=== PATIENT | female | born 1965 | race Caucasian/White ===

== ENCOUNTER 2019-08-18 13:52 | Day surgery (SDC) | payer BC ==
[2019-08-18] MEDS ORDERED: Marcaine 0.5% SDV 10 ML IJ ONE (13:53)
[2019-08-18] MEDS ORDERED: Depo-Medrol 40 MG/ML IM ONE (13:53)
[2019-08-18] MEDS ORDERED: Ketamine HCl 50 MG/ML ONE (15:13)
[2019-08-18] MEDS ORDERED: DIPRIVAN 200 MG/20 ML IV ONE (15:33)
[2019-08-18] MEDS ORDERED: Lactated Ringers 1,000 ML IV ONE (15:42)
--- NOTE | 2019-08-18 16:31 | XRAY ---
Indication: Right shoulder injection. Intraoperative fluoroscopy was provided for 11 seconds. Single digital spot image submitted for interpretation demonstrates needle tip projecting over the right glenohumeral joint. Small amount of contrast injected for needle tip placement. Correlate with intraoperative findings/report.
--- NOTE | 2019-08-18 16:31 | XRAY ---
Indication: Left shoulder injection. Intraoperative fluoroscopy was provided for 14 seconds. Single digital spot image submitted for interpretation demonstrates needle tip projecting over the left glenohumeral joint superiorly. Small amount of contrast injected for needle tip placement. Correlate with intraoperative findings/report.
--- NOTE | 2019-08-18 16:34 | XRAY ---
11 seconds fluoroscopy time in surgery for right knee injection.
--- NOTE | 2019-08-18 16:34 | XRAY ---
14 seconds fluoroscopy time in surgery for left knee injection.
== END 2019-08-18 15:51 | disposition home or self-care (01) ==
LOC: SDC-PAIN 13:52
PROVIDERS: ATTEND Psychiatry & Neurology Pain Medicine
DX: M19.012 Primary osteoarthritis, left shoulder (principal); M19.011 Primary osteoarthritis, right shoulder; E78.5 Hyperlipidemia, unspecified; K44.9 Diaphragmatic hernia without obstruction or gangrene; K21.9 Gastro-esophageal reflux disease without esophagitis; F41.8 Other specified anxiety disorders; F40.240 Claustrophobia
CPT/HCPCS: 20550; 20610; 73030; 77002; J1030; J2704; Q9966

== ENCOUNTER 2021-11-04 18:53 | Emergency (ER) | payer BC ==
[2021-11-04 19:20] VITALS: O2SAT 98
[2021-11-04 20:27] VITALS: PULSE 59
--- NOTE | 2021-11-04 21:28 | ERPHSYRPT ---
- History of Present Illness Time Seen by Provider: 11/04/21 18:58 Source: patient Exam Limitations: no limitations Patient Subjective Stated Complaint: Patient is c/o right leg pain. States it started in her foot last week so she made and appointment with Dr. Bush and h as that appointment on 11/06/21. Patient states that the pain has become worse and is now radiating into her calf at times. Denies any falls or injuries to the affected leg. States pain is better when standing/applying pressure to area but is worse when she is laying down or off of her feet for an extended amount of time. Triage Nursing Assessment: Patient ambulated back to ED without difficulties. She is alert and oriented and answering questions appropriately. Pedal pulses present in both feet. Slight swelling noted to right calf and knee area. Skin tone normal, no increased redness or warmth noted. CMS checks to toes on both feet WNL but patient does state that she thinks she can feel more in her left foot than her right foot. Negative Homans sign. Physician History: 56-year-old healthy female presented in the ER with chief complaint of right lower extremity pain. Patient reports having right foot and ankle pain for the last couple of weeks off-and-on with activity and since yesterday started to have some pain radiating to right lower leg and calf, moderate intensity, dull sharp nature, more with palpation and activity and partial relief with resting. No redness, fever chills, fall, long travel or history of DVT. Does not hormone/ control pills. Allergies/Adverse Reactions: Iodinated Contrast Media Allergy (Severe, Verified 11/04/21 19:20) Difficulty Breathing Home Medications: No Reportable Medications [No Reported Medications] 11/04/21 [History] Hx Tetanus, Diphtheria Vaccination/Date Given: Yes Hx Influenza Vaccination/Date Given: Yes Hx Pneumococcal Vaccination/Date Given: Yes Immunizations Up to Date: Yes Travel Risk - International Travel Have you traveled outside of the country in past 3 weeks: No - Coronavirus Screening Are you exhibiting any of the following symptoms?: No Close contact with a COVID-19 positive Pt in past 14-21 Days: No - Vaccine Status Have you recieved a Covid-19 vaccination: Yes Elevator Mechanic: [employer] - Vaccination Dates Date of 2cond Vaccination (if applicable): 2020 - Review of Systems Constitutional: No Symptoms Respiratory: No Symptoms Cardiac: No Symptoms Abdominal/Gastrointestinal: No Symptoms Genitourinary Symptoms: No Symptoms Musculoskeletal: Myalgias Skin: No Symptoms Neurological: No Symptoms Endocrine: No Symptoms Hematologic/Lymphatic: No Symptoms Immunological/Allergic: No Symptoms - Past Medical History Pertinent Past Medical History: Yes Neurological History: No Pertinent History ENT History: No Pertinent History Cardiac History: No Pertinent History Respiratory History: No Pertinent History Endocrine Medical History: No Pertinent History Musculoskeletal History: Arthritis GI Medical History: Ulcer History: No Pertinent History Psycho-Social History: No Pertinent History Female Reproductive Disorders: No Pertinent History - Past Surgical History Past Surgical History: Yes Neuro Surgical History: No Pertinent History Cardiac: No Pertinent History Respiratory: No Pertinent History Gastrointestinal: No Pertinent History Genitourinary: No Pertinent History Musculoskeletal: No Pertinent History Female Surgical History: Hysterectomy - Social History Smoking Status: Former smoker Exposure to second hand smoke: No Drug Use: none Patient Lives Alone: No - Nursing Vital Signs Nursing Vital Signs: Initial Vital Signs Temperature 98.4 F 11/04/21 19:06 Pulse Rate 63 11/04/21 19:06 Respiratory Rate 18 11/04/21 19:06 Blood Pressure 165/88 11/04/21 19:06 O2 Sat by Pulse Oximetry 98 11/04/21 19:06 Pain Scale Pain Intensity 3 - Physical Exam General Appearance: no apparent distress, alert Eyes, Ears, Nose, Throat Exam: normal ENT inspection Neck Exam: normal inspection, supple, full range of motion Cardiovascular/Respiratory Exam: normal breath sounds, regular rate/rhythm Knees Exam: right knee: soft tissue tenderness (Lower calf mild tenderness), other (No erythema/redness/swelling as compared to left) Ankle Exam: right ankle: soft tissue tenderness, swelling (Lateral malleolus) Foot Exam: right foot: swelling, bilateral foot: non-tender, normal inspection, normal range of motion, no evidence of injury Neuro/Tendon Exam: normal sensation, normal motor functions, normal tendon functions Mental Status Exam: alert, oriented x 3, cooperative Skin Exam: normal color SpO2 Interpretation: normal SpO2: 98 O2 Delivery: Oxymizer Ordered Tests: Active Orders 24 hr Category Date Time Status Ultrasound Unilateral Extremities [VENOUS UNILAT/ Exams 11/04/21 19:32 Taken LIMITED EXTREMIT] [US] Stat - Progress Progress: unchanged Progress Note: 11/04/21 21:26 Ultrasound negative per preliminary report for DVT. No signs of cellulitis. No obvious trauma. Recommended Tylenol/ibuprofen and keeping appointment with podiatry for reevaluation in 2 days. 11/04/21 21:39 Counseled pt/family regarding: diagnosis, need for follow-up, rad results - Departure Departure Disposition: Home Clinical Impression: Leg pain Qualifiers: Laterality: right Qualified Code(s): M79.604 - Pain in right leg Condition: Stable Critical Care Time: No Referrals: KAVON PEÑA NP [Primary Care Provider] - Follow Up with PCP/3 days Instructions: Deep Vein Thrombosis (Blood Clots in the Legs) (DC) Additional Instructions: Take Tylenol/ibuprofen as needed. Follow-up with primary care for reevaluation. Keep appointment with podiatry for reevaluation in 2 days. Return to ER for increasing pain, swelling or if develop redness/fever chills etc.
[2021-11-04 21:34] VITALS: BP 134/72
--- NOTE | 2021-11-05 08:53 | XRAY ---
Indication: Pain. Two-dimensional sonogram and color Doppler imaging of the major venous vessels of the right leg performed. Comparison: None No thrombus seen in the examined deep venous vessels of the right leg including greater saphenous vein. Veins demonstrate normal compressibility. Venous waveforms are normal with and without augmentation. Impression: Right leg negative for DVT. Comment: Preliminary report was given.
== END 2021-11-04 21:36 | disposition home or self-care (01) ==
LOC: ED 18:53
DX: M79.604 Pain in right leg (principal)
CPT/HCPCS: 93971; 99283

== ENCOUNTER 2023-07-10 07:51 | Day surgery (SDC) | payer BC ==
--- NOTE | 2023-07-09 11:14 | HP ---
DATE OF SURGERY: 07/10/2023 HISTORY OF PRESENT ILLNESS: The patient is a 58-year-old female who presented with complaints of some epigastric pain. She had an EGD in 2012 with some severe erosive esophagitis. She has been on some omeprazole for a long time. If she does stop that her heartburn does flare up. She has been on some Pepcid here recently that does help. Last colonoscopy was in 2017. She had no polyps. PAST MEDICAL HISTORY: Heartburn, gastroesophageal reflux disease, psoriasis. PAST SURGICAL HISTORY: Hysterectomy. ALLERGIES: NKDA. IODINATED CONTRAST MEDIA. MEDICATIONS: Pepcid. FAMILY HISTORY: Negative. SOCIAL HISTORY: Former smoker, occasional alcohol. REVIEW OF SYSTEMS: CONSTITUTIONAL: Denies fever or chills. CHEST: Denies shortness of breath. CVS: Denies chest pain. ABDOMEN: Reports epigastric pain. PHYSICAL EXAMINATION: GENERAL: No acute distress. CHEST: Nonlabored. No shortness of breath. CVS: Regular rate and rhythm. ABDOMEN: Soft. IMPRESSION: Screening and epigastric pain, history of gastroesophageal reflux disease. PLAN: EGD and colonoscopy with Dr. Manjeet Lizama. As dictated by Judy Albarado NP.
[~2023-07-10 07:51] MED LIST: Lactated Ringers 1,000 ML IV ONE; Lactated Ringers 1,000 ML IV SCH
[2023-07-10] MEDS ORDERED: DIPRIVAN 200 MG/20 ML IV ONE ×2 (10:01→10:19)
[2023-07-10] MEDS ORDERED: Xylocaine-Mpf 2% 5 Ml Vial ONE (10:01)
[2023-07-10] MEDS ORDERED: Versed 2 MG/2 ML Injection ONE (10:02)
[2023-07-10] MEDS ORDERED: ROBINUL ONE (10:17)
[2023-07-10] MEDS ORDERED: ATROPINE SULFATE 1MG ONE (10:26)
[2023-07-10 10:30] VITALS: TEMP 97.6
[2023-07-10 10:41] VITALS: RESP 16
[2023-07-10 10:45] VITALS: PULSE 87
[2023-07-10 10:48] VITALS: BP 115/73; O2SAT 97
--- NOTE | 2023-07-10 10:55 | OP ---
SURGERY DATE/TIME: 07/10/2023 1001 PREOPERATIVE DIAGNOSES: 1) Epigastric pain. 2) Screening exam. POSTOPERATIVE DIAGNOSES: 1) A 2 inch hiatal hernia. 2) Normal lower examination. PROCEDURES: 1) EGD with cold biopsy of the antrum. 2) Colonoscopic examination to cecum. SURGEON: Manjeet Lizama M.D. ANESTHESIA: MAC. COMPLICATIONS: None. CONDITION: Stable. INDICATION: As above. DESCRIPTION OF PROCEDURE: The patient is taken to endoscopy. Scope introduced. Pharyngoesophageal junction normal. Esophagus normal down to gastroesophageal junction. Rim of esophagitis Grade 2 and a 2 inch hiatal hernia. Fundus, body and antrum there is a very mild hemorrhagic gastritis. A pharmaceutical service representative antrum biopsy was taken. Pylorus normal. Duodenal bulb normal. Second portion normal. Scope looped upon itself. A 2 inch hiatal hernia. Scope withdrawn. Anal digital examination satisfactory tone. Scope introduced. Scope advanced to the cecum. Base of the cecum, ileocecal valve was normal. Right behind the ileocecal valve there is a small area not seen. He did have a screening scope five years ago. Ascending, hepatic, transverse, splenic, descending, sigmoid, rectum, anus was normal. PLAN: Follow up in five years.
== END 2023-07-10 10:55 | disposition home or self-care (01) ==
LOC: SDC 07:51
PROVIDERS: ATTEND Surgery
DX: Z12.11 Encounter for screening for malignant neoplasm of colon (principal); R10.13 Epigastric pain; K44.9 Diaphragmatic hernia without obstruction or gangrene; K29.70 Gastritis, unspecified, without bleeding
CPT/HCPCS: J0461; J2250; J2704